=== PATIENT | female | born 1985 | race Caucasian/White ===

== ENCOUNTER 2017-03-27 14:31 | Emergency (ER) | payer OTHER ==
[~2017-03-27] VITALS: Ht 152.4 cm; Wt 56.6 kg
[2017-03-27] MEDS ORDERED: ZITHROMAX Z-PA250 MG PO (15:09)
[2017-03-27 15:30] VITALS: BP 113/74
== END 2017-03-27 16:10 | disposition home or self-care (01) ==
LOC: EME 14:31 → EDBD 14:31 → EME 16:10
DX: R00.2 Palpitations (principal); H66.92 Otitis media, unspecified, left ear; T44.7X6A Underdosing of beta-adrenoreceptor antagonists, initial encounter; Z91.128 Patient's intentional underdosing of medication regimen for other reason; I49.3 Ventricular premature depolarization; F17.200 Nicotine dependence, unspecified, uncomplicated; Z97.5 Presence of (intrauterine) contraceptive device
CPT/HCPCS: 93005; 99281; 99284